=== PATIENT | female | born 1970 | race African-American/Black ===

== ENCOUNTER 2018-11-15 11:46 | Emergency (ER) | payer MEDICAID, SELFPAY ==
[2018-11-15 11:48] VITALS: BP 141/80; PULSE 83; RESP 18; TEMP 36.8; O2SAT 98; BMI 33.5
--- NOTE | 2018-11-15 12:18 | ED.VISSUMM ---
- ER Visit Summary Date of Service: 11/15/18 Chief Complaint: Vaginal bleeding History of Present Illness: The patient is a 48 F past medical history of asthma. Patient is 48 years old and in May this used to have irregular periods recently been more heavy. Mild cramping from time to time. No other symptoms. 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 Physical Examination: Vital signs are stable afebrile. No distress. HEENT exam unremarkable. Lungs clear to auscultation bilaterally. Heart regular rhythm no murmur. Abdomen soft nontender. Normal bowel sounds no peritoneal signs. Remedies moves all 4. Nontender no edema. Neurologically awake alert. Test Results: CBC shows a mild anemia with a hemoglobin 11.7. Hematocrit 36. Normal white count. And no old labs available for comparison. Serum test is negative. Emergency Department Course and Treatment: Patient is having irregular and heavier menstrual periods over the last several months. Most likely coincides with her coming in the menopause. Repeat exam the patient is doing well at 12:52 PM.?1330 2 PM. Treatment Plan: I spoke to Dr. Gibbs the CONTROLS TECHNICIAN physician on-call for [facility] today. She will follow-up with patient in the office. At this time reporting off on any medication. She states that the patient has worsening bleeding to call their on-call line this weekend. All this was discussed with the patient. Disposition: Discharge Impression: Acute perimenopausal vaginal bleeding This note was generated with [employer] dictation software. It may contain incorrect words, spelling, and punctuation that were not noted in review of the chart prior to signing ED Disposition - Plan for ED Patient: Referrals: Care Physician,No Primary [Primary Care Provider] -
[2018-11-15 12:39] LABS: Hematocrit 36.4 % (37-47); Hemoglobin 11.7 g/dl (12.0-15.0); Mean Corp Hgb Conc 32.1 g/gl (32-36); Mean Corpuscular Hgb 22.8 pg (27.0-32.0); Mean Corpuscular Volume 70.8 fL (81-99); Mean Platelet Vol. 9.6 fl (6.2-12.0); Platelet Count 244 K/mm3 (150-450); RBC Distribution Width CV 15.5 % (11.6-14.6); RBC Distribution Width SD 40.4 fl (35.1-43.9); Red Blood Count 5.14 M/mm3 (4.2-5.4); Scan Indicated on CBC? Y/N NO; White Blood Count 5.4 K/mm3 (4.4-11.0)
[2018-11-15 12:48] LABS: Internal QC Validated? YES +Cl - CLEAR BKGD; Pregnancy, Serum, hCG Quali. NEGATIVE Negative
--- NOTE | 2018-11-15 13:35 | DCINST.ED_ITS ---
ED Disposition - Plan for ED Patient: Disposition: Home or Assisted Living Instructions: Dysfunctional Uterine Bleeding Referrals: Kaelyn Gibbs, [STAFF PHYSICIAN] - As soon as possible Additional Instructions: More than likely her bleeding is secondary to perimenopausal causes. Tylenol and Motrin for pain. I spoke to Dr. Letty Gibbs of the [facility]. Their office should contact you Saturday morning to set up appointment with her in the next several days. If they do not contact you by noon call them. Your blood count today your hemoglobin was 11.7 showing signs of mild anemia. If your bleeding gets significantly worse this weekend, I suspect you will have more bleeding this weekend, call Dr. Gibbs as on-call line and she will discuss that with you.
== END 2018-11-15 13:48 | disposition home or self-care (01) ==
PROVIDERS: Emergency Provider Emergency Medicine
DX: N93.9 Abnormal uterine and vaginal bleeding, unspecified (principal); N92.6 Irregular menstruation, unspecified; D64.9 Anemia, unspecified; J45.909 Unspecified asthma, uncomplicated
CPT/HCPCS: 84703; 85027; 99283; A4216